=== PATIENT | female | born 1985 | race Caucasian/White ===

== ENCOUNTER 2017-01-03 12:49 | Outpatient (CLI) | payer BC ==
[~2017-01-03] VITALS: Ht 162.6 cm; Wt 68.9 kg
[2017-01-03 13:30] VITALS: BP 120/75
== END 2017-01-03 16:30 | disposition home or self-care (01) ==
LOC: OBGOP 12:49 → OB 12:51 → OBGOP 16:30
PROVIDERS: ATTEND Family Medicine
DX: Z34.83 Encounter for supervision of other normal pregnancy, third trimester (principal); Z3A.32 32 weeks gestation of pregnancy; W01.10XA Fall on same level from slipping, tripping and stumbling with subsequent striking against unspecified object, initial encounter
CPT/HCPCS: 99203